=== PATIENT | female | born 1990 | race African-American/Black ===

== ENCOUNTER 2019-02-09 08:59 | Emergency (ER) | payer MEDICAID, OTHER ==
[~2019-02-09] VITALS: Ht 167.6 cm; Wt 70.0 kg
[2019-02-09] MEDS ORDERED: NAPROXEN 375MG TABLET PO ONE (09:30)
[2019-02-09] MEDS ORDERED: ONDANSETRON HCL 4MG TABLET PO ONE (09:30)
[2019-02-09 09:55] LABS: CLARITY URINE CLOUDY (CLEAR); COLOR URINE RED (YELLOW); KETONES URINE NEGATIVE (NEGATIVE); LEUKOCYTE ESTERASE URINE TRACE (NEGATIVE); NITRITE URINE NEGATIVE (NEGATIVE); OCCULT BLOOD URINE 3+ (NEGATIVE); PH URINE 7.5 (4.5-8.0); PROTEIN URINE 1+ (NEGATIVE); UROBILINOGEN URINE 0.2 E.U./dL (0.2-1.0)
[2019-02-09 12:15] VITALS: BP 134/83
== END 2019-02-09 12:18 | disposition home or self-care (01) ==
LOC: ER 08:59
DX: B34.9 Viral infection, unspecified (principal)
CPT/HCPCS: 81003; 81025; 87804; 99283; Q0162; Z7610

== ENCOUNTER 2021-03-21 10:38 | Emergency (ER) | payer MEDICAID, OTHER ==
[~2021-03-21] VITALS: Ht 167.6 cm; Wt 65.8 kg
[2021-03-21] MEDS ORDERED: KETOROLAC 60MG/2ML VIAL IM STA (11:32)
[2021-03-21 12:57] LABS: MEAN CORPUSCULAR HEMOGLOBIN 16.6 pg (28.0-32.0); MEAN CORPUSCULAR VOLUME 59.4 fL (81.0-99.0); MEAN PLATELET VOLUME 8.6 fl (7.4-10.4); PLATELET 701 x1000/uL (130-400); RED BLOOD CELL COUNT 3.23 mill/uL (4.2-5.4); RED CELL DISTRIBUTION WIDTH 24.1 % (11.6-14.6)
[2021-03-21 13:03] LABS: CHLORIDE 108 mEq/L (98-107)
[2021-03-21 13:08] LABS: HCG SCREEN NEGATIVE
[2021-03-21 13:20] LABS: HEMATOCRIT. 19.2 % (36.0-48.0); HEMOGLOBIN. 5.4 g/dL (12.0-16.0)
[2021-03-21] MEDS ORDERED: SODIUM CHLORIDE 0.9% 1,000 ML IV ONE (13:30)
[2021-03-21 13:54] LABS: CLARITY URINE CLEAR (CLEAR); COLOR URINE YELLOW (YELLOW); KETONES URINE NEGATIVE (NEGATIVE); LEUKOCYTE ESTERASE URINE NEGATIVE (NEGATIVE); NITRITE URINE NEGATIVE (NEGATIVE); OCCULT BLOOD URINE 2+ (NEGATIVE); PH URINE 8.5 (4.5-8.0); PROTEIN URINE TRACE (NEGATIVE); UROBILINOGEN URINE 0.2 E.U./dL (0.2-1.0)
[2021-03-21 14:00] LABS: PLATELET ESTIMATE INCREASED
[2021-03-21] MEDS ORDERED: ACETAMINOPHEN WITH CODEINE 300/30MG TABLET PO ONE (15:00)
[2021-03-21] MEDS ORDERED: IBUP-2029 MT (15:34)
[2021-03-21] MEDS ORDERED: KETOROLAC 15MG/ML VIAL IV ONE (18:30)
[2021-03-21 20:35] VITALS: BP 132/72
== END 2021-03-21 20:36 | disposition left against medical advice (07) ==
LOC: ER 10:38
DX: D25.9 Leiomyoma of uterus, unspecified (principal); D64.9 Anemia, unspecified; Z98.890 Other specified postprocedural states
CPT/HCPCS: 36415; 74176; 80053; 81003; 83690; 84703; 85025; 86850; 86900; 86901; 86920; 96361; 96372; 96374; 99285; J1885; J7030; P9016

== ENCOUNTER 2021-09-04 08:20 | Emergency (ER) | payer MEDICAID, OTHER ==
[~2021-09-04] VITALS: Ht 170.2 cm; Wt 76.0 kg
[~2021-09-04 08:20] MED LIST: IBUP-2029 MT
[2021-09-04 09:01] VITALS: BP 133/87
[2021-09-04 10:02] LABS: BASOPHILS % 1.3 % (0.0-2.0); EOSINOPHILS % 3.7 % (0.0-5.0); HEMATOCRIT. 26.3 % (36.0-48.0); HEMOGLOBIN. 7.7 g/dL (12.0-16.0); LYMPHOCYTES % 28.2 % (20.0-50.0); MEAN CORPUSCULAR HEMOGLOBIN 19.5 pg (28.0-32.0); MEAN CORPUSCULAR VOLUME 67.1 fL (81.0-99.0); MEAN PLATELET VOLUME 10.3 fl (7.4-10.4); MONOCYTES % 12.3 % (2.0-8.0); NEUTROPHILS % 54.5 % (40.0-76.0); PLATELET 268 x1000/uL (130-400); RED BLOOD CELL COUNT 3.92 mill/uL (4.2-5.4); RED CELL DISTRIBUTION WIDTH 18.9 % (11.6-14.6)
[2021-09-04 10:05] LABS: CHLORIDE 111 mEq/L (98-107); PARTIAL THROMBOPLASTIN TIME 25.4 sec (23.4-31.0); PROTHROMBIN TIME 11.1 sec (9.6-11.0)
[2021-09-04 10:25] LABS: PLATELET ESTIMATE NORMAL
== END 2021-09-04 10:56 | disposition home or self-care (01) ==
LOC: ER 08:58
DX: N93.8 Other specified abnormal uterine and vaginal bleeding (principal); R10.2 Pelvic and perineal pain; D64.9 Anemia, unspecified
CPT/HCPCS: 36415; 80053; 85025; 99283

== ENCOUNTER 2022-02-27 16:33 | Emergency (ER) | payer OTHER ==
[~2022-02-27] VITALS: Ht 170.2 cm; Wt 69.0 kg
[2022-02-27] MEDS ORDERED: ACETAMINOPHEN 325MG TABLET PO ONE (17:15)
[2022-02-27 17:38] LABS: MEAN CORPUSCULAR VOLUME 62.5 fL (81.0-99.0); MEAN PLATELET VOLUME 9.9 fl (7.4-10.4); PLATELET 460 x1000/uL (130-400); RED BLOOD CELL COUNT 2.78 mill/uL (4.2-5.4); RED CELL DISTRIBUTION WIDTH 25.9 % (11.6-14.6)
[2022-02-27 17:40] LABS: CHLORIDE 113 mEq/L (98-107)
[2022-02-27 17:42] LABS: HEMATOCRIT. 17.4 % (36.0-48.0); HEMOGLOBIN. 4.7 g/dL (12.0-16.0)
[2022-02-27 17:43] LABS: HCG SCREEN NEGATIVE
[2022-02-27 18:23] LABS: PLATELET ESTIMATE INCREASED
[2022-02-27 23:20] LABS: HEMATOCRIT 14.9 % (36.0-48.0)
[2022-02-28 04:02] LABS: HEMOGLOBIN 6.1 g/dL (12.0-16.0)
[2022-02-28 04:03] LABS: HEMATOCRIT 20.8 % (36.0-48.0)
[2022-02-28 08:17] LABS: HEMATOCRIT 23.7 % (36.0-48.0); HEMOGLOBIN 7.3 g/dL (12.0-16.0); MEAN CORPUSCULAR HEMOGLOBIN 20.4 pg (28.0-32.0); MEAN CORPUSCULAR VOLUME 65.9 fL (81.0-99.0); PLATELET 485 x1000/uL (130-400); RED CELL DISTRIBUTION WIDTH 33.7 % (11.6-14.6)
[2022-02-28 10:15] VITALS: BP 138/87
== END 2022-02-28 10:47 | disposition short-term general hospital (02) ==
LOC: ER 16:33
DX: D64.9 Anemia, unspecified (principal); R06.02 Shortness of breath; R51.9 Headache, unspecified; Z98.890 Other specified postprocedural states; Z20.822 Contact with and (suspected) exposure to COVID-19
CPT/HCPCS: 36415; 71045; 80053; 83880; 84484; 84703; 85014; 85018; 85025; 85027; 86850; 86870; 86900; 86901; 86920; 87426; 99285; C9803; P9016

== ENCOUNTER 2023-01-14 09:06 | Inpatient (IN) | payer MEDICAID, OTHER ==
[~2023-01-14] VITALS: Ht 167.6 cm; Wt 71.7 kg
[2023-01-14] MEDS ORDERED: SODIUM CHLORIDE 0.9% 1,000 ML IV ONE (10:45)
[2023-01-14 11:56] LABS: CHLORIDE 101 mEq/L (98-107)
[2023-01-14 11:57] LABS: MEAN CORPUSCULAR VOLUME 58.5 fL (81.0-99.0); RED BLOOD CELL COUNT 2.49 mill/uL (4.2-5.4); RED CELL DISTRIBUTION WIDTH 23.4 % (11.6-14.6)
[2023-01-14 12:10] LABS: HEMATOCRIT. 14.5 % (36.0-48.0)
[2023-01-14 12:44] LABS: PLATELET 131 x1000/uL (130-400)
[2023-01-14 12:50] LABS: PLATELET ESTIMATE NORMAL
[2023-01-14] MEDS ORDERED: MORPHINE SULFATE 4 MG/ML CPJ (NOT FOR IM USE) IV ONE (15:15)
[2023-01-14] MEDS ORDERED: ACETAMINOPHEN 325MG TABLET PO ONE (16:00)
[2023-01-14 16:46] LABS: MEAN CORPUSCULAR HEMOGLOBIN 16.5 pg (28.0-32.0); MEAN CORPUSCULAR VOLUME 59.3 fL (81.0-99.0); MEAN PLATELET VOLUME 8.7 fl (7.4-10.4); PLATELET 119 x1000/uL (130-400); RED BLOOD CELL COUNT 2.53 mill/uL (4.2-5.4); RED CELL DISTRIBUTION WIDTH 24.2 % (11.6-14.6)
[2023-01-14 16:59] LABS: HEMOGLOBIN. 4.2 g/dL (12.0-16.0)
[2023-01-14 18:06] LABS: PLATELET ESTIMATE DECREASED
[2023-01-14 20:00] VITALS: BP_SYST 118; BP_SYST 123; BP_DIAS 72
[2023-01-14] MEDS ORDERED: ACETAMINOPHEN 650MG/20.3ML UDC PO PRN (20:15)
[2023-01-14] MEDS ORDERED: ONDANSETRON HCL 4MG/2ML INJ IV PRN (20:45)
[2023-01-14 21:46] LABS: CLARITY URINE CLEAR (CLEAR); COLOR URINE YELLOW (YELLOW); KETONES URINE 1+ (NEGATIVE); LEUKOCYTE ESTERASE URINE 1+ (NEGATIVE); NITRITE URINE POSITIVE (NEGATIVE); OCCULT BLOOD URINE NEGATIVE (NEGATIVE); PH URINE 6.5 (4.5-8.0); PROTEIN URINE NEGATIVE (NEGATIVE); SPECIFIC GRAVITY URINE 1.007 (1.005-1.030)
[2023-01-14] MEDS: IRON SUCROSE COMPLEX 100 MG/5 ML ML IV SCH (22:17)
[2023-01-15] VITALS (16 sets, daily range): BP systolic 98–126; BP diastolic 47–74
[2023-01-15] MEDS: ACETAMINOPHEN 325MG TABLET PO PRN ×4 (03:02→21:11)
[2023-01-15] MEDS ORDERED: HYDROCODONE/ACETAMINOPHEN 10/325MG TABLET PO PRN (09:15)
[2023-01-15] MEDS ORDERED: NALOXONE HCL 0.4MG/ML VIAL IV PRN (09:45)
[2023-01-15] MEDS: PIPERACILLIN/TAZOBACTAM 3.375 G in DEXTROSE 5% WATER 50 ML IV SCH ×2 (10:47→21:28)
[2023-01-15 10:58] LABS: MEAN CORPUSCULAR HEMOGLOBIN 16.7 pg (28.0-32.0); MEAN CORPUSCULAR VOLUME 59.6 fL (81.0-99.0); RED BLOOD CELL COUNT 2.44 mill/uL (4.2-5.4); RED CELL DISTRIBUTION WIDTH 23.4 % (11.6-14.6)
[2023-01-15 11:13] LABS: HEMATOCRIT. 14.6 % (36.0-48.0); HEMOGLOBIN. 4.1 g/dL (12.0-16.0)
[2023-01-15] MEDS ORDERED: KETOROLAC 30MG/ML VIAL IV PRN (11:30)
[2023-01-15] MEDS ORDERED: POTASSIUM CHLORIDE 20MEQ TABLET SR PO SCH (11:30)
[2023-01-15 14:38] LABS: PLATELET ESTIMATE DECREASED
[2023-01-15 14:41] LABS: MEAN PLATELET VOLUME 9.3 fl (7.4-10.4); PLATELET 96 x1000/uL (130-400)
[2023-01-15 21:22] LABS: *AMPHETAMINES SCREEN URINE NEGATIVE (NEGATIVE); *BARBITURATES SCREEN URINE NEGATIVE (NEGATIVE); *BENZODIAZEPINES SCREEN URINE NEGATIVE (NEGATIVE); *COCAINE SCREEN URINE NEGATIVE (NEGATIVE); METHADONE URINE SCREEN NEGATIVE (NEGATIVE); PHENCYCLIDINE URINE SCREEN NEGATIVE (NEGATIVE)
[2023-01-15] MEDS: IRON SUCROSE COMPLEX 100 MG/5 ML ML IV SCH (21:28)
[2023-01-15 21:29] LABS: CANNABINOID URINE SCREEN PRESUMTIVE POSITIVE (NEGATIVE); OPIATES URINE SCREEN PRESUMTIVE POSITIVE (NEGATIVE)
[2023-01-15 23:26] LABS: HEMATOCRIT 22.4 % (36.0-48.0)
[2023-01-15 23:37] LABS: HEMOGLOBIN 6.9 g/dL (12.0-16.0)
[2023-01-16] VITALS (9 sets, daily range): BP systolic 110–137; BP diastolic 63–81
[2023-01-16] MEDS: ACETAMINOPHEN 325MG TABLET PO PRN (03:52)
[2023-01-16 11:11] LABS: HEMATOCRIT. 25.4 % (36.0-48.0); MEAN CORPUSCULAR HEMOGLOBIN 22.7 pg (28.0-32.0); MEAN CORPUSCULAR VOLUME 72.2 fL (81.0-99.0); RED BLOOD CELL COUNT 3.52 mill/uL (4.2-5.4)
[2023-01-16] MEDS ORDERED: LEVO-65 MT (11:25)
[2023-01-16 13:06] LABS: PLATELET ESTIMATE DECREASED
[2023-01-16 13:09] LABS: PLATELET 69 x1000/uL (130-400)
== END 2023-01-16 12:05 | disposition home or self-care (01) | DRG 663 ==
LOC: ER 09:06 → EDBEDREQ 14:30 → EDBEDREQTM 14:30 → 6EST 17:56 → 7EST 01-15 08:21
PROVIDERS: ADMIT Internal Medicine; ATTEND Internal Medicine
PROC: 30233N1 Transfusion of Nonautologous Red Blood Cells into Peripheral Vein, Percutaneous Approach (ICD-10-PCS; principal; 2023-01-14)
DX: D62 Acute posthemorrhagic anemia (principal); R65.10 Systemic inflammatory response syndrome (SIRS) of non-infectious origin without acute organ dysfunction; E87.6 Hypokalemia; N93.8 Other specified abnormal uterine and vaginal bleeding; N39.0 Urinary tract infection, site not specified; Z98.891 History of uterine scar from previous surgery
CPT/HCPCS: 36415; 71045; 80053; 80305; 81003; 82247; 82248; 82962; 83010; 83615; 85014; 85018; 85025; 86078; 86850; 86900; 86920; 93005; 93970; 99291; J2270; J2405; J2543; J7060; P9016